=== PATIENT | male | born 1935 | race Caucasian/White ===

== ENCOUNTER 2017-12-14 11:00 | Inpatient (IN) | payer MEDICARE, BC ==
[~2017-12-14] VITALS: Ht 175.3 cm; Wt 90.0 kg
[~2017-12-14 11:00] MED LIST: ACETAMIN500 M2 PO; ACETAMIN500 M3 PO; AMOXICILLIN/CL875 MG OR; ATACAND16 MG PO; ATENOLOL100 MG PO; ATENOLOL50 MG PO; ATORVASTATIN CA80 MG PO; AUGMENTIN875TAB OR; BAYER ASPIRIN E81 MG PO; BAYER LOW81 MG OR; CENTRUM PO; CEPHALEXIN500 MG PO; CIPRO500 MG OR; CIPRO500 MG PO; CIPRODEX1 ML OT; CIPROFLOXACN500 MG PO; CORTISPORIN OTI10 ML AD; COZAAR100 MG PO; DILAUDID2 MG OR; EQ ASPIRIN81 M1 OR; EQL PAIN RELIE500 MG PO; FLOMAX0.4 M1 PO; LIPITOR80 MG PO; NEXIUM40 M1 PO; PERCOCET 5/325M1 TAB PO; PLAVIX75 MG OR; PLAVIX75 MG PO; RAPAFLO8 MG PO; ROBITUSSIN AC10 ML PO; SAW PALMETTO450 MG OR; SAW PALMETTO450 MG PO; TENORMIN OR; TYLENOL PM PO; XALATAN0.005 % OU; ZETIA10 MG PO
--- NOTE | 2017-12-14 11:07 | NUR ---
AMBULATORY TO ER ROOM 13, TO BED
--- NOTE | 2017-12-14 11:50 | NUR ---
UNABLE TO ESTABLISH IV SITE AFTER 2 ATTEMPTS FROM BAGGAGE AGENT SUPERVISOR. CHARGE NURSE INFORMED.
--- NOTE | 2017-12-14 12:30 | NUR ---
IV FLUIDS INFUSING TO IV #22 IN RAC WELL. PATIENT TOLERATING WELL. CALL LIGHT GIVEN AND INFORMED TO CALL FOR ASSISTANCE. WILL CONTINUE TO MONITOR.
[2017-12-14 12:42] LABS: HEMATOCRIT 41.6 % (39.0-50.0); IMMATURE GRANULOCYTES 1.4 % (0.0-5.0); MEAN CELL VOLUME 95.9 fL CALC (80.0-100.0); MEAN CORPUSCULAR HGB 32.3 pG CALC (26.0-32.0); MEAN CORPUSCULAR HGB CONC 33.7 g/L CALC (32.0-36.0); NEUT# 20.96 thou/uL (1.82-7.42); RED BLOOD COUNT 4.34 mill/uL (4.70-6.10); RED CELL DISTRI WIDTH 12.7 % (11.5-15.5)
[2017-12-14] MEDS ORDERED: LOSARTAN POTASS50 MG PO (12:43)
[2017-12-14] MEDS ORDERED: NITROSTAT0.4 MG SL (12:46)
[2017-12-14 13:01] LABS: ALBUMIN 3.8 g/dL (3.2-5.0); BILIRUBIN, TOTAL 1.2 mg/dL (0.0-1.4); CREATININE 1.5 mg/dL (0.7-1.3); POTASSIUM 4.8 mmol/l (3.5-5.1); TOTAL PROTEIN 6.7 g/dL (6.3-8.2)
[2017-12-14 13:50] LABS: INFLUENZA A NONE DETECTED (NONE DETECT); INFLUENZA B NONE DETECTED (NONE DETECT)
--- NOTE | 2017-12-14 13:50 | NUR ---
LAB UNABLE TO OBTAIN BLOOD CULTURES, WILL ATTEMPT AGAIN
--- NOTE | 2017-12-14 14:51 | NUR ---
PATIENT ASSISTED TO SIDE OF BED TO COLLECT URINE SAMPLE. URINE NOTED TO BE DARK YELLOW AND CLOUDY.
--- NOTE | 2017-12-14 14:53 | NUR ---
ATTEMPT MADE TO CALL REPORT, SPOKE TO ALENA. NURSE NOT AVAILABLE WILL CALL BACK.
--- NOTE | 2017-12-14 15:06 | NUR ---
REPORT CALLED TO GERARDO NICHOLS.
--- NOTE | 2017-12-14 15:10 | NUR ---
PT ARRIVED TO FLOOR VIA STRETCHER ACCOMPANIED BY DONTAE DICKINSON AND SISTER;PT AMBULATED WITH A WEAK GAIT AND 1 PERSON ASSIST TO BEDSIDE;ALERT AND ORIENTED X3,PT ORIENTED TO ROOM AND CALL LIGHT SYSTEM AND VERBALIZES UNDERSTANDING;PT REPORTS NAUSEA/VOMITING/DIARRHEA X3 DAYS AFTER ARRIVING FROM [place];PT IS NOT NAUSEOUS OR HAVE PAIN AT THIS TIME,PAIN SCALE AND REPORTING EDUCATED;VS OBTAINED AND ASSESSMENT COMPLETED;CURRENT TEMP 101.9,MULTIPLE BLANKETS REMOVED WELL AN UNDERSHIRT,AC ALSO LOWERED;RESPIRATIONS EVEN AND UNLABORED ON RA,CLEAR LUNG SOUNDS NOTED;ABDOMEN DISTENDED/SOFT ON PALPATION,PT DENIES ANY TENDERNESS.HYPOACTIVE BOWEL SOUNDS IN ALL 4 QUADRANTS,LAST BM 12/14/17;WEAK PEDAL PULSES;SKIN INTACT;#22G TO RAC FLUSHED AND PATENT, LR STARTED AT 75ML/HR PER ORDER;TELE MONITOR IN PLACE;LEFT SIDED WEAKNESS AND CONTRACTURE NOTED TO LEFT ARM R/T HX OF A CVA IN 2008;CLEAR LIQUID DIET REINFORCED AND PT VERBALIZES UNDERSTANDING;ALL SAFETY PRECAUTIONS REINFORCED WITH BED IN THE LOWEST POSITION;PT ENCOURAGED TO CALL FOR ASSISTANCE IF NEEDED;FRESH WATER PROVIDED PER REQUEST;CALL LIGHT IN REACH;WILL CONTINUE TO MONITOR
--- NOTE | 2017-12-14 15:15 | NUR ---
PATIENT TRANSPORTED TO [facility] WITH TELE IN PLACE VIA STRETCHER. GERARDO NICHOLS AT BEDSIDE. BELONGINGS SENT WITH PATIENT. CARE RELINQUISHED, PATIENT IN STABLE CONDITION.
[2017-12-14 15:43] VITALS: BP 158/79
[2017-12-14 16:00] LABS: URINE BILIRUBIN - DIPSTICK NEGATIVE (NEGATIVE); URINE BLOOD DIPSTICK LARGE (NEGATIVE); URINE COLOR YELLOW; URINE GLUCOSE - DIPSTICK NEGATIVE (NEGATIVE); URINE KETONE 15 mg/dL (NEGATIVE); URINE LEUK ESTERASE LARGE (Negative); URINE NITRITE - DIPSTICK NEGATIVE (Negative); URINE PROTEIN - DIPSTICK 100 mg/dL (NEG-TRACE)
[2017-12-14 16:01] LABS: URINE CLARITY CLOUDY
[2017-12-14 16:13] LABS: URINE RBC TNTC RBC/hpf (0-5)
[2017-12-14 16:14] LABS: URINE BACTERIA MODERATE hpf; URINE SQUAMOUS EPITHELIAL CELL FEW EPI/hpf (0-FEW); URINE WBC TNTC WBC/hpf (0-5)
--- NOTE | 2017-12-14 17:06 | NUR ---
PT MEDICATED WITH TYLENOL 650MG PO FOR A TEMP OF 101.9,COOL CLOTH PROVIDED TO FORNALLELY;WILL CONTINUE TO MONITOR
--- NOTE | 2017-12-14 18:27 | NUR ---
TEMP RE-CHECK 99.9
[2017-12-14 19:27] VITALS: BP 110/53
--- NOTE | 2017-12-14 20:11 | NUR ---
PATIENT RESTING IN BED WITH SISTER AT BEDSIDE. PATIENT ASSISTED OOB TO THE BR TO VOID 250CC OF MADELYN URINE. PATIENT DOES HAVE SOME LEFT SIDED WEAKNESS FROM PREVIOUS STROKE. ASSISTED BACK TO BED. PATIENT WITH NO COMPLAINTS AT THIS TIME. IS ASKING ABOUT ANTIBIOTICS AND WAS EDUCATED THAT THE ORDER WAS SENT TO PHARM TO BE PROFILED AND WILL GET ZOSYN STARTED SOON IT CAN BE PROFILED TO [facility]. VERBALIZES UNDERSTANDING. IV SITE TO LEFT AC INTACT WITH IVF LR PATENT AND INFUSING AT 75CC/HR. SITE APPEARS HEALTHY AT THIS TIME. SAFETY PRECAUTIONS REINFORCED.CALL LIGHT IN REACH. WILL CONT TO MONITOR.
--- NOTE | 2017-12-14 21:15 | NUR ---
PATIENT RESTING IN BED. IV SITE TO RIGHT AC FOUND DISLODGED AND SITE WAS D/C'ED WITH CATH INTACT. NEW IV SITE STARTED TO LEFT FOREARM-#22 GAUGE WITH GOOD RETURN. IVF LR PATENT AND INFUSING AT 75CC/HR. ZOSYN HUNG ORDERED. NO COMPLAINTS AT THIS TIME. SAFETY PRECAUTIONS REINFORCED.CALL LIGHT IN REACH. WILL CONT TO MONITOR.
--- NOTE | 2017-12-15 00:05 | NUR ---
PATIENT CALLED AND ASSISTED TO THE BR TO VOID. NO STOOL AT THIS TIME. INSTRUCTED THAT WE DO NEED STOOL SPEC WHEN HE IS ABLE TO PROVIDE ONE. ASSISTED BACK TO BED. C/O HEADACHE AND PATIENT MEDICATED WITH TYLENOL 650MG PO FOR PAIN. IVF PATENT AND INFUSING AT 75CC/HR VIA LEFT FOREARM SITE. REINFORCED SAFETY PRECAUTIONS. CALL LIGHT IN REACH. WILL CONT TO MONITOR.
[2017-12-15 00:10] VITALS: BP 120/60
--- NOTE | 2017-12-15 02:57 | NUR ---
APPEARS SLEEPING AT THIS TIME WITH EYES CLOSED. IVF PATENT AND INFUSING AT 75CC/HR. SITE REMAINS HEALTHY AT THIS TIME. CALL LIGHT IN REACH. WILL CONT TO MONITOR.
[2017-12-15 04:51] VITALS: BP 126/65
[2017-12-15 05:36] LABS: ALKALINE PHOSPHATASE 71 u/l (38-126); ANION GAP 12 (6-22 (CALC)); BILIRUBIN, TOTAL 1.1 mg/dL (0.0-1.4); BUN 41 mg/dL (8-23); BUN/CREATININE RATIO 32 (12-20 (CALC)); CARBON DIOXIDE 24 mmol/l (22-30); CHLORIDE 111 mmol/l (95-108); CREATININE 1.3 mg/dL (0.7-1.3); GFR 53 ML/MIN (>=60 (CALC)); GFR FOR AFR.AMER. > 60 ML/MIN (>=60 (CALC)); MAGNESIUM 1.7 mg/dL (1.6-2.3); POTASSIUM 4.1 mmol/l (3.5-5.1); SGOT/AST 24 u/l (19-48); SODIUM 142 mmol/l (137-146)
[2017-12-15 05:37] LABS: HEMOGLOBIN 12.4 g/dl (14.0-18.0); IMMATURE GRANULOCYTES 1.6 % (0.0-5.0); MEAN CELL VOLUME 97.4 fL CALC (80.0-100.0); MEAN CORPUSCULAR HGB 32.6 pG CALC (26.0-32.0); MEAN CORPUSCULAR HGB CONC 33.5 g/L CALC (32.0-36.0); NEUT# 14.51 thou/uL (1.82-7.42); RED BLOOD COUNT 3.8 mill/uL (4.70-6.10); RED CELL DISTRI WIDTH 12.8 % (11.5-15.5)
[2017-12-15 05:43] LABS: TOTAL PROTEIN 5.3 g/dL (6.3-8.2)
[2017-12-15 05:44] LABS: ALBUMIN 2.8 g/dL (3.2-5.0)
--- NOTE | 2017-12-15 07:20 | NUR ---
REPORT RECEIVED FROM DONTAE NEGRO;PT OOB RESTING IN RECLINER;INTRODUCED SELF TO PT AND POC DISCUSSED;PT DENIES ANY PAIN OR DISCOMFORTS;RESPIRATIONS EVEN AND UNLABORED ON RA;TELE MONITOR IN PLACE;ENCOURAGED PT TO CALL FOR ASSISTANCE IF NEEDED;CALL LIGHT IN REACH;WILL CONTINUE TO MONITOR
[2017-12-15 08:13] VITALS: BP 121/41
--- NOTE | 2017-12-15 08:15 | NUR ---
PT OOB RESTING IN RECLINER;VS OBTAINED AND ASSESSMENT COMPLETED;PT DENIES ANY CURRENT PAIN OR NAUSEA,PAIN SCALE AND REPORTING RE-EDUCATED;RESPIRATIONS EVEN AND UNLABORED ON RA,CLEAR LUNG SOUNDS;ABDOMEN DISTENDED/SOFT ON PALPATION AND ACTIVE IN ALL QUADRANTS,LAST BM THIS MORNING 12/15/17 PT REPORTS BROWN AND SOFT;UNABLE TO OBTAIN SAMPLE DUE TO PT VOIDING INTO TOILET; STRONG PEDAL PULSES;SKIN INTACT;LEFT SIDED WEAKNESS NOTED FROM HX OF CVA;#22G TO LEFT FOREARM INFUSING LR @ 75ML/HR,SITE APPEARS HEALTHY;TELE MONITOR IN PLACE;ALL SAFETY PRECAUTIONS REINFORCED WITH FALL PRECAUTIONS IN PLACE;CALL LIGHT IN REACH;WILL CONTINUE TO MONITOR
--- NOTE | 2017-12-15 11:06 | NUR ---
AT BEDSIDE DISCUSSING POC.
[2017-12-15 11:35] VITALS: BP 125/61
--- NOTE | 2017-12-15 12:00 | NUR ---
PT OOB RESTING IN RECLINER WITH FAMILY AT BEDSIDE;PT DENIES ANY CURRENT PAIN OR NAUSEA;RESPIRATIONS EVEN AND UNLABORED ON RA;TELE MONITORING IN PLACE;#22G TO LEFT FOREARM REMAINS PATENT INFUSING LR @ 75 ML/HR;PT DENIES ANY ADDITIONAL NEEDS AND IS INSTRUCTED TO CALL FOR ASSISTANCE IF NEEDED;FALL PRECAUTIONS IN PLACE WITH CALL LIGHT IN REACH;WILL CONTINUE TO MONITOR
--- NOTE | 2017-12-15 14:14 | NUR ---
PT CURRENT TEMP 100.0,PT MEDICATED WITH PRN TYLENOL 650MG PO;WILL MONITOR FOR EFFECTIVENESS
[2017-12-15 15:00] VITALS: BP 131/50
--- NOTE | 2017-12-15 15:11 | NUR ---
SMALL STOOL SAMPLE OBTAINED. BROWN/SOFT;SAMPLE SENT TO LAB BUT NOTIFIED THAT THERE IS NOT ENOUGH TO RUN TESTS ON.
[2017-12-15 16:04] LABS: C. DIFFICILE TOXIN A&B NEGATIVE (NEGATIVE)
--- NOTE | 2017-12-15 16:10 | NUR ---
PT OOB RESTING IN RECLINER WITH FAMILY AT BEDSIDE;TEMP RE-CHECK 99.0;RESPIRATIONS REMAIN EVEN AND UNLABORED ON RA;PT DENIES ANY CURRENT PAIN OR NAUSEA;TELE MONITOR IN PLACE;PT ENCOURAGED TO CALL FOR ASSISTANCE IF NEEDED;CALL LIGHT IN REACH;WILL CONTINUE TO MONITOR
--- NOTE | 2017-12-15 17:04 | NUR ---
PT TRANSFERRED TO [facility] VIA WHEELCHAIR ACCOMPANIED BY ELIEZER MORIN IN STABLE CONDITION.
--- NOTE | 2017-12-15 17:15 | NUR ---
PT ARRIVED BACK TO FLOOR IN STABLE CONDITION
[2017-12-15 19:13] VITALS: BP 119/68
--- NOTE | 2017-12-15 19:25 | NUR ---
PT IS IN RECLINER, NO S/S OF DISTRESS NOTED AT THIS TIME. PT DENIES ANY NEEDS AT THIS TIME, POC DISCUSSED AND BSREPORT RECEIVED FROM DAY NURSE. PT ENCOURAGED TO CALL USING CALL LIGHT AT SIDE FOR ANY NEEDS THEY ARISE.
--- NOTE | 2017-12-15 21:10 | NUR ---
PT BEGAN YELLING OUT AT ME I WAS IN HALLWAY TALKING W/ANOTHER PT ACROSS THE DESIR. I COULD SEE HIM SITTING IN RECLINER/NO OBVIOUS S/O DISTRESS, I ASKED HIM TO ALLOW ME TO FINISH SPEAKING W/PREVIOUS PT AND HE CONTINUED TO YELL AT ME ABOUT SMELLING SOMETHING. UPON ENTERING ROOM THE PT ROOM, I ASKED HIM HIS NEED, HE SAID "SOMETHING STINKS AND IT'S GIVING ME A HEADACHE," NO PARTICULAR SMELL NOTED AT THIS TIME. I OFFERED HOUSEKEEPING TO COME TO HIS ROOM, BUT REFUSED STATING IT WOULD CAUSE OTHER BAD SMELLS. HE REQUESTED TYLENOL FOR C/O H.A. 05/31. I DISCUSSED CALL SYSTEM W/PT IN PLACE OF YELLING OUT. PT APPEARED QUITE AGGITATED OVER THIS PARTICULAR SMELL THAT I WAS UNABLE TO DETECT. PT REASSURED I WOULD RETURN WITH TYLENOL FOR HIS HEADACHE AND OFFERED TO PROVIDE ANY OTHER COMFORT MEASURES/REFUSED.
--- NOTE | 2017-12-15 21:27 | NUR ---
UPON ENTERING ROOM PT WAS SELF AMBULATING TO BED FROM RECLINER AND MOVING HIS BST AROUND. I IMMEDIATELY PROVIDED ASSISTANCE TO PT AND DISCUSSED FALL PRECAUTIONS TO PT. HE EXPRESSED FRUSTRATION STATING, "YOU'VE GOT TO BE KIDDING ME," WHEN I REMINDED HIM TO PUSH THE CALL LIGHT WHEN HE NEEDED TO AMBULATE FOR SAFETY PURPOSES. PT MEDICATED AT THIS TIME ORDERS PROVIDE FOR C/O HEADACHE REPORTED "DUE TO SMELL." NO PARTICULAR SMELL NOTED AT THIS TIME. HE REPORTS IT SMELLS LIKE SOMEONE IS COOKING. PT ASSESSED, LUNG SOUNDS ARE CLEAR/DIM LOWER, WEAK PEDAL PULSES, ABD DIST/FIRM/NON-TENDER, PT REPORTS DIFFICULTY MAKING IT TO RESTROOM WHEN NEEDING TO URINATE AND BM SMALL FORMED STOOL THIS EARLY EVENING. WILL CONTINUE TO MONITOR PT. PT LEFT W/LIGHTS AND TV OFF AND PT IN LOW FOWLERS POSITION IN BED IN LOWEST POSITION AND CALL LIGHT W/IN REACH.
[2017-12-16 00:17] VITALS: BP 127/66
--- NOTE | 2017-12-16 00:21 | NUR ---
PT MEDICATED W/IV ANTIBIOTIC THERAPY ORDERS PROVIDE. PT WAS ASLEEP UPON ENTERING ROOM AND AWOKE TO MY VOICE/TOUCH. DENIES ANY NEEDS AT THIS TIME. CALL LIGHT IS AT BEDSIDE AND PT ENCOURAGED TO CALL IF NEEDS ARISE.
--- NOTE | 2017-12-16 02:50 | NUR ---
PT APPEARS TO BE SLEEPING AT THIS TIME. NO S/S OF DISTRESS NOTED AT THIS TIME. CALL LIGHT W/IN REACH
[2017-12-16 04:29] VITALS: BP 125/66
--- NOTE | 2017-12-16 06:10 | NUR ---
PT MEDICATED W/IV ANTIBTICS ORDERED AND ASSISTED TO RESTROOM AND BACK TO BED. 325CC DARK YELLOW URINE OUTPUT.
--- NOTE | 2017-12-16 07:55 | NUR ---
SHIFT CHANGE REPORT FROM ANNCI WOODS AWAKE AND ALERT SITTING UP IN RECLINER, DISORIENTED TO TIME, TELE MONITOR IN PLACE, NO C/O DISCOMFORT, CALL PALACIOS IN REACH,
[2017-12-16 08:27] VITALS: BP 121/43
[2017-12-16 11:12] VITALS: BP 106/60
[2017-12-16 11:39] LABS: HEMATOCRIT 36.5 % (39.0-50.0); HEMOGLOBIN 12.2 g/dl (14.0-18.0); MEAN CELL VOLUME 95.8 fL CALC (80.0-100.0); MEAN CORPUSCULAR HGB CONC 33.4 g/L CALC (32.0-36.0); NEUT# 10.16 thou/uL (1.82-7.42); RED BLOOD COUNT 3.81 mill/uL (4.70-6.10); RED CELL DISTRI WIDTH 12.7 % (11.5-15.5)
[2017-12-16 11:59] LABS: ANION GAP 12 (6-22 (CALC)); BUN 27 mg/dL (8-23); BUN/CREATININE RATIO 25 (12-20 (CALC)); CARBON DIOXIDE 24 mmol/l (22-30); CHLORIDE 109 mmol/l (95-108); CREATININE 1.1 mg/dL (0.7-1.3); GFR > 60 ML/MIN (>=60 (CALC)); GFR FOR AFR.AMER. > 60 ML/MIN (>=60 (CALC)); POTASSIUM 4.1 mmol/l (3.5-5.1); SODIUM 140 mmol/l (137-146)
--- NOTE | 2017-12-16 12:02 | NUR ---
SITTING UP IN RECLINER HAVING MEAL, DR CISNEROS & KENDALL ROUNDED AND DISCUSSED PLAN OF CARE, PT STATED UNDERSTANDING, WILL CONTINUE TO MONITOR.
[2017-12-16 15:30] VITALS: BP 106/58
--- NOTE | 2017-12-16 19:22 | NUR ---
REPORT RECEIVED FROM DAY NURSE. PT IS SITTING IN RECLINER W/TV AND LIGHTS ON. NO S/S OF DISTRESS NOTED. PT DENIES ANY NEEDS AT THIS TIME, POC DISCUSSED. PT ONLY REQUEST IS HIS 2400 MEDICATION ANTIBIOTIC ORDERED/POC AND MED SCHEDULE DISCUSSED/EXPRESSED UNDERSTANDING OF SCHEDULE. WILL FOLLOW-UP W/ASSESSMENT.
[2017-12-16 19:52] VITALS: BP 139/53
--- NOTE | 2017-12-16 20:09 | NUR ---
PT FOUND AMBULATING ROOM, DENIES ANY NEEDS. CALL LIGHT IS ON BST NEXT TO RECLINER, PT LEFT IN RECLINER.
[2017-12-17 00:05] VITALS: BP 128/71
--- NOTE | 2017-12-17 00:22 | NUR ---
PT IV ANTIBIOTIC THERAPY COMPLETED AT THIS TIME. PT WAS SLEEPING UPON ENTERING ROOM. NO S/S OF DISTRESS NOTED.
[2017-12-17 04:25] VITALS: BP 143/87
--- NOTE | 2017-12-17 05:53 | NUR ---
LAB WAS IN W/PT. PT JUST MEDICATED W/IV ANTIBIOTICS AT THIS TIME ORDERED. PT DENIES ANY OTHER NEEDS AND IS "GOING TO TRY AND GO BACK TO SLEEP." CALL LIGHT AT SIDE AND PT ENCOURAGED TO CALL IF HE NEEDS ASSISTANCE.
[2017-12-17 06:07] LABS: HEMATOCRIT 33.5 % (39.0-50.0); HEMOGLOBIN 11.4 g/dl (14.0-18.0); MEAN CELL VOLUME 95.4 fL CALC (80.0-100.0); MEAN CORPUSCULAR HGB 32.5 pG CALC (26.0-32.0); RED BLOOD COUNT 3.51 mill/uL (4.70-6.10); RED CELL DISTRI WIDTH 12.5 % (11.5-15.5)
[2017-12-17 06:23] LABS: ANION GAP 11 (6-22 (CALC)); BUN 24 mg/dL (8-23); BUN/CREATININE RATIO 22 (12-20 (CALC)); CARBON DIOXIDE 23 mmol/l (22-30); CHLORIDE 111 mmol/l (95-108); CREATININE 1.1 mg/dL (0.7-1.3); GFR > 60 ML/MIN (>=60 (CALC)); GFR FOR AFR.AMER. > 60 ML/MIN (>=60 (CALC)); MAGNESIUM 1.6 mg/dL (1.6-2.3); SODIUM 142 mmol/l (137-146)
[2017-12-17 07:54] VITALS: BP 149/59
--- NOTE | 2017-12-17 07:57 | NUR ---
PT BACK TO BED FROM BATHROOM, PT HAD A BM THIS AM SEEN BY SUPERINTENDENT FISH HATCHERY. PT ALERT AND ORIENTED X3, AMBULATES WITHOUT DIFFICULTY. DISCUSSED POC, PT STATES HE FEELS BETTER. ASSESSMENT COMPLETED AT THIS TIME. SITTING TO CHAIR AT BEDSIDE FOR BREAKFAST, CALL LIGHT IN REACH, CONTINUE TO MONITOR.
[2017-12-17 12:06] VITALS: BP 137/59
--- NOTE | 2017-12-17 12:07 | NUR ---
PT SITTING IN RECLINER AT BEDSIDE, IV ZOSYN INITIATED. PT VOICES NO NEEDS OR COMPLAINTS AT THIS TIME. CALL LIGHT IN REACH,CONTINUE TO MONITOR.
--- NOTE | 2017-12-17 14:06 | NUR ---
PT AMBULATING HALLWAY, NO SIGNS OF DISTRESS NOTED, RESP EVEN AND UNLABORED, CONTINUE TO MONITOR.
[2017-12-17 16:50] VITALS: BP 124/64
--- NOTE | 2017-12-17 17:10 | NUR ---
PT SITTING IN RECLINER AT BEDSIDE, NO SIGNS OF DISTRESS NOTED, RESP EVEN AND UNLABORED. PT VOICES NO NEEDS OR COMPLAINTS AT THIS TIME. CALL LIGHT IN REACH,CONTINUE TO MONITOR.
--- NOTE | 2017-12-17 18:30 | NUR ---
PT TAKEN DOWN TO RADIOLOGY VIA WHEELCHAIR ACCOMPANIED BY UTILITY CLERK.
[2017-12-17 20:00] VITALS: BP 124/59
--- NOTE | 2017-12-17 20:10 | NUR ---
I WAS IN ANOTHER ROOM AND HEARD PT CALLING OUT. INTERMODAL CUSTOMER SERVICE HEARD HIM AND ENTERED THE ROOM, UPON MY ENTERING ROOM SHE WAS EXPLAINING TO HIM HOW HIS FLUIDS WORKED AND REASSURING HIM THAT THE PUMP WAS RUNNING OKAY. I REASSURED HIM, BUT HE INSISTED THAT IT WASN'T WORKING, "DROPS ARE NOT FALLING." PT IS UNHOOKED FROM ANTIBIOTIC AND ALL FLUIDS AT THIS TIME, IV SITE APPEARS HEALTHY, PT DENIES DISCOMFORT OR PAIN. PT LEFT CALMLY IN BED W/ATTEMPTS MADE TO EDUCATED ON FLUIDS. WILL CONITNUE TO MONITOR. CALL LIGHT IN HAND AND PT ENCOURAGED TO CALL AND REORIENTING TO CALL SYSTEM IF ANY OTHER NEEDS OR CONCERNS ARISE.
--- NOTE | 2017-12-18 00:05 | NUR ---
PT MEDICATED W/IV ANTIBIOTICS. HE WAS SLEEPING WE ENTERED THE ROOM. V/S ASSESSED AND MEDICATIONS ADMINISTERED. PT ASSISTED TO RESTROOM AND BACK TO BED AND REPOSITIONED. PT DENIES ANY OTHER NEEDS AT THIS TIME. CALL LIGHT W/IN REACH
[2017-12-18 00:30] VITALS: BP 131/61
[2017-12-18 05:01] LABS: HEMOGLOBIN 11.3 g/dl (14.0-18.0); IMMATURE GRANULOCYTES 4.1 % (0.0-5.0); MEAN CELL VOLUME 96.6 fL CALC (80.0-100.0); MEAN CORPUSCULAR HGB 32.1 pG CALC (26.0-32.0); MEAN CORPUSCULAR HGB CONC 33.2 g/L CALC (32.0-36.0); NEUT# 9.17 thou/uL (1.82-7.42); RED BLOOD COUNT 3.52 mill/uL (4.70-6.10); RED CELL DISTRI WIDTH 12.7 % (11.5-15.5)
[2017-12-18 05:02] VITALS: BP 132/69
[2017-12-18 05:17] LABS: ANION GAP 12 (6-22 (CALC)); BUN 21 mg/dL (8-23); BUN/CREATININE RATIO 22 (12-20 (CALC)); CARBON DIOXIDE 24 mmol/l (22-30); CHLORIDE 111 mmol/l (95-108); GFR > 60 ML/MIN (>=60 (CALC)); GFR FOR AFR.AMER. > 60 ML/MIN (>=60 (CALC)); MAGNESIUM 1.5 mg/dL (1.6-2.3); SODIUM 142 mmol/l (137-146)
--- NOTE | 2017-12-18 06:18 | NUR ---
pt medicated as orders provide w/iv antibiotic therapy. he is up in recliner at this time w/call light at side. denies any other needs at this time.
--- NOTE | 2017-12-18 07:45 | NUR ---
PT SITTING IN RECLINER AT BEDSIDE, NO SIGNS OF DISTRESS NOTED, RESP EVEN AND UNLABORED. PT ALERT AND ORIENTED X3. PT VOICES NO NEEDS OR COMPLAINTS, DISCUSSED POC. ASSESSMENT COMPLETED, CALL LIGHT IN REACH,CONTINUE TO MONITOR.
[2017-12-18 08:40] VITALS: BP 140/46
[2017-12-18 11:30] VITALS: BP 137/53
--- NOTE | 2017-12-18 12:00 | NUR ---
PT SITTING IN RECLINER, IV ZOSYN INFUSING. CALL LIGHT IN REACH, SISTER AT BEDSIDE. CONTINUE TO MONITOR.
[2017-12-18] MEDS ORDERED: CIPROFLOXACN500 MG PO (12:36)
== END 2017-12-18 13:47 | disposition home or self-care (01) | DRG 690 ==
LOC: ED 11:00 → ED-I 11:36 → ED 14:03 → MS2 14:04
PROVIDERS: Emergency Medicine; Nurse Practitioner Family; ADMIT Internal Medicine Nephrology; ATTEND Internal Medicine Nephrology
DX: N39.0 Urinary tract infection, site not specified (principal); N17.9 Acute kidney failure, unspecified; I69.954 Hemiplegia and hemiparesis following unspecified cerebrovascular disease affecting left non-dominant side; E86.0 Dehydration; I10 Essential (primary) hypertension; E78.5 Hyperlipidemia, unspecified; K21.9 Gastro-esophageal reflux disease without esophagitis; N40.0 Benign prostatic hyperplasia without lower urinary tract symptoms; D72.829 Elevated white blood cell count, unspecified; I69.922 Dysarthria following unspecified cerebrovascular disease; I69.992 Facial weakness following unspecified cerebrovascular disease; B96.20 Unspecified Escherichia coli [E. coli] as the cause of diseases classified elsewhere; Z79.02 Long term (current) use of antithrombotics/antiplatelets
CPT/HCPCS: G0378

== ENCOUNTER 2019-03-16 08:39 | Emergency (ER) | payer MEDICARE, BC ==
[~2019-03-16 08:39] MED LIST changes: +LOSARTAN POTASS50 MG PO; +NITROSTAT0.4 MG SL
[2019-03-16 09:41] VITALS: BP 154/75
== END 2019-03-16 09:50 | disposition home or self-care (01) ==
LOC: ED 08:39
DX: L98.9 Disorder of the skin and subcutaneous tissue, unspecified (principal); R19.7 Diarrhea, unspecified; I10 Essential (primary) hypertension; Z86.73 Personal history of transient ischemic attack (TIA), and cerebral infarction without residual deficits